=== PATIENT | female | born 1990 | race American Indian/Alaskan Native ===

== ENCOUNTER 2017-03-03 02:33 | Emergency (ER) | payer OTHER ==
[2017-03-03 03:04] VITALS: BP 135/98
[2017-03-03 03:26] LABS: Basophils % (Auto) 0.5 % (0.0-1.8); Eosinophils % (Auto) 1.5 % (0.0-4.3); Hematocrit 35.4 % (30.3-42.9); Hemoglobin 11.1 gm/dl (10.1-14.3); Mean Corpuscular HGB Conc 31 % (30-34); Mean Corpuscular Volume 72 fl (79-97); Platelet Count 391 K/mm3 (140-440); Red Blood Count 4.94 M/mm3 (3.65-5.03); Red Cell Distribution Width 17.1 % (13.2-15.2); White Blood Count 8.9 K/mm3 (4.5-11.0)
[2017-03-03] MEDS ORDERED: TYLENOL ONE (03:28)
[2017-03-03 03:29] LABS: Mean Corpuscular Hemoglobin 23 pg (28-32)
[2017-03-03 03:37] LABS: Alanine Aminotransferase 23 units/L (7-56); Albumin/Globulin Ratio 1.3 %; Alkaline Phosphatase 112 units/L (35-129); Anion Gap 18 mmol/L; BUN/Creatinine Ratio 15.55; Blood Urea Nitrogen 14 mg/dL (7-17); Calcium 8.8 mg/dL (8.4-10.2); Carbon Dioxide 23 mmol/L (22-30); Glucose 142 mg/dL (65-100); Lipase 34 units/L (13-60); Potassium 3.8 mmol/L (3.6-5.0); Sodium 135 mmol/L (137-145)
[2017-03-03 04:33] LABS: Bacteria,Urine 1+ /HPF (Negative); Bilirubin,Urine NEG (Negative); Blood,Urine NEG (Negative); Ketones,Urine NEG (Negative); Leukocyte Esterase,Urine NEG (Negative); Mucus,Urine FEW /HPF; Nitrite,Urine NEG (Negative); Protein,Urine <15 mg/dL mg/dL (Negative); RBC,Urine < 1.0 /HPF (0.0-6.0); Urobilinogen,Urine < 2.0 mg/dL (<2.0)
[2017-03-03] MEDS ORDERED: TYLENOL PO ONE (06:48)
== END 2017-03-03 04:48 | disposition left against medical advice (07) ==
LOC: ED 02:33
DX: R10.31 Right lower quadrant pain (principal); Z53.21 Procedure and treatment not carried out due to patient leaving prior to being seen by health care provider
CPT/HCPCS: 36415; 80053; 81001; 83690; 84703; 85025